=== PATIENT | male | born 1985 | race Hispanic/Latino ===

== ENCOUNTER 2024-11-16 18:10 | Emergency (ER) | payer BC ==
[~2024-11-16] VITALS: Ht 172.7 cm; Wt 137.2 kg
[2024-11-16 18:17] VITALS: PULSE 81; RESP 18; TEMP 97.5
[2024-11-16] MEDS ORDERED: VITAMIN D350 MCG (18:38)
[2024-11-16] MEDS ORDERED: LOSARTAN POTASS25 MG PO (18:38)
[2024-11-16] MEDS ORDERED: METFORMIN HCL500 M2 PO (18:38)
[2024-11-16] MEDS ORDERED: VITAMIN B-121000 MCG PO (18:38)
[2024-11-16 19:45] VITALS: BP 142/83; RESP 20; O2SAT 97
== END 2024-11-16 19:45 | disposition home or self-care (01) ==
LOC: FSED 18:32
DX: M25.571 Pain in right ankle and joints of right foot (principal); S82.291A Other fracture of shaft of right tibia, initial encounter for closed fracture; X50.1XXA Overexertion from prolonged static or awkward postures, initial encounter; Y92.89 Other specified places as the place of occurrence of the external cause
CPT/HCPCS: 99283

== ENCOUNTER 2025-03-23 16:45 | Emergency (ER) | payer BC ==
[~2025-03-23] VITALS: Ht 172.7 cm; Wt 139.7 kg
[~2025-03-23 16:45] MED LIST: LOSARTAN POTASS25 MG PO; METFORMIN HCL500 M2 PO; VITAMIN B-121000 MCG PO; VITAMIN D350 MCG
[2025-03-23] MEDS ORDERED: CYCLOBENZAPRINE10 MG PO (17:08)
[2025-03-23 17:23] VITALS: PULSE 67; RESP 18; TEMP 99; O2SAT 98
== END 2025-03-23 17:23 | disposition home or self-care (01) ==
LOC: FSED 16:52
DX: S39.012A Strain of muscle, fascia and tendon of lower back, initial encounter (principal); X50.1XXA Overexertion from prolonged static or awkward postures, initial encounter; Y92.89 Other specified places as the place of occurrence of the external cause; I10 Essential (primary) hypertension; E11.9 Type 2 diabetes mellitus without complications
CPT/HCPCS: 99283